=== PATIENT | female | born 1970 | race Asian ===

== ENCOUNTER 2016-11-03 19:52 | Emergency (ER) | payer BC, OTHER ==
[~2016-11-03] VITALS: Ht 154.9 cm; Wt 52.2 kg
[2016-11-03 20:35] LABS: Basophils # (auto) 0.1 uL; Basophils % (auto) 0.5 % (0.0-2.0); Eosinophils # (auto) 0.4 uL; Eosinophils % (auto) 3.4 % (0.0-7.0); Hematocrit 44.2 % (36.0-46.0); Hemoglobin 14.7 g/dL (12.2-16.2); Lymphocytes # (auto) 1.6 uL; Lymphocytes % (auto) 15.7 % (10.0-50.0); Mean Corpuscular Hgb Conc. 33.2 g/dL (32.0-36.0); Mean Corpuscular Volume 90.5 fL (80.0-100.0); Mean Platelet Volume 7.5 fL (7.4-10.4); Monocytes # (auto) 0.6 uL; Monocytes % (auto) 5.5 % (0.0-12.0); Neutrophils # (auto) 7.8 uL; Neutrophils % (auto) 74.9 % (37.0-80.0); Platelet Count (auto) 453 10^3/uL (140-450); Red Cell Distribution Width 14.2 % (11.6-16.0); White Blood Cell 10.4 10^3/uL (4.4-10.8)
[2016-11-03 20:54] LABS: INR 0.97 (0.9-1.15); Partial Thromboplastin Time 23.8 sec (22.64-33.71)
[2016-11-03 20:57] LABS: Albumin 3.5 g/dL (3.4-5.0); Anion Gap 8 (5-15); Blood Urea Nitrogen 10 mg/dL (7-18); Carbon Dioxide 21 mmol/L (21-32); Chloride 109 mmol/L (98-107); Glucose 105 mg/dL (74-106); Potassium 3.6 mmol/L (3.5-5.1); Sodium 138 mmol/L (136-145)
[2016-11-03 21:00] LABS: Aspartate Aminotransferase 43 U/L (15-37); BUN/Creatinine Ratio 14.1; GFR African American 114 mL/min; GFR Non-African American 95 mL/min
[2016-11-03 21:05] LABS: B-Type Natriuretic Peptide 28.62 pg/mL (0-100)
[2016-11-03 21:09] LABS: Temperature: 22.4 C (20.0-25.0)
[2016-11-03] MEDS ORDERED: SODIUM CHLORIDE 0.9% 1,000 ML IV ONE (21:15)
[2016-11-03] MEDS ORDERED: MECLIZINE HCL 25 MG TAB PO ONE (21:15)
[2016-11-03 21:17] LABS: Alkaline Phosphatase 91 U/L (45-117); Bilirubin, Total 0.5 mg/dL (0.2-1.0); Total Protein 7.5 g/dL (6.4-8.2)
[2016-11-03] MEDS ORDERED: ONDANSETRON HCL 4 MG/2 ML VIAL IV ONE (22:00)
[2016-11-04 02:14] VITALS: BP 104/68
== END 2016-11-04 03:02 | disposition home or self-care (01) ==
LOC: ER 19:56
DX: R42 Dizziness and giddiness (principal); R53.1 Weakness; R11.10 Vomiting, unspecified; R07.9 Chest pain, unspecified
CPT/HCPCS: 36415; 70450; 70486; 71010; 80053; 83880; 84443; 84484; 85025; 85610; 85730; 96361; 96374; 99285; J2405; J8597